=== PATIENT | male | born 1950 | race African-American/Black ===

== ENCOUNTER → 2018-11-26 | Emergency (ER) | payer MEDICARE ==
[~2018-11-26] VITALS: Ht 177.8 cm; Wt 79.4 kg
[~2018-11-26] MED LIST: ALBUTEROL SULF8.5 GM INH; Albuterol/Ipratropium 3ml neb HHN ONE; CIPRO500 MG PO; FLOMAX0.4 MG PO; IBUPROFEN600 MG PO; LEVAQUIN500 MG ORAL; MEDROL DOSEPAK4 MG ORAL; NORVASC5 MG PO; OXYCODON-ACETA1 EAC2 PO; PERCOCET 5-3251 EACH PO; PROMETHAZINE-C118 M1 ORAL; Promethazine/Codeine 5ml UD ORAL ONE; VICODIN 5-5001 EACH PO; ZITHROMAX250 MG ORAL
--- NOTE | 2018-11-26 14:33 | NUR ---
ED Nurse Note: pt walked in ed c/o flu like s/s for four five days pt states he has been taking otc cold medicine and took his old amoxicillin but doesn't help. Pt AA&ox4, gcs=15, skin warm and dry, resp even and unlabored, noted productive cough, and congestion, LS=rhonchi, -n/v/d, ambulates w/ cane steady gait. PA at the bedside.
[2018-11-26 14:35] VITALS: BP 137/80
--- NOTE | 2018-11-26 14:45 | Emergency Room Report ---
History of Present Illness General Chief Complaint: Flu Like Symptoms Source: Medical Record Present Illness HPI 68-year-old male presents to the emergency department complaining of persistent cough with wheezing 4-5 days. Patient denies fevers and chills he states he's been using [id number] cough and cold remedies with no relief. Patient reports history of asthma/bronchitis. Patient denies smoking history. Patient denies chest pain or swelling in the lower extremities. Patient denies history of heart failure. Denies sore throat, ear pain, high fevers, lethargy, neck pain /stiffness, irritability, photophobia dehydration, N/V/D. Denies Cp, Palpitations, LOC, AMS, seizures, paresthesias, or changes in Hearing or vision , no Sudden severe HANNA. Denies dyspnea or SOB, he states taking a deep breath will instigate coughing. Allergies: Coded Allergies: No Known Allergies (Unverified , 11/26/18) Patient History Past Medical History: see triage record Past Surgical History: none Pertinent Family History: none Immunizations: UTD Reviewed Nursing Documentation: PMH: Agreed; PSxH: Agreed Nursing Documentation-PMH Hx Cardiac Problems: Yes - ENLARGED HEART Hx Hypertension: Yes Hx COPD: Yes Hx Diabetes: No Hx Cancer: No Hx Gastrointestinal Problems: No - BPH Hx Neurological Problems: No Review of Systems All Other Systems: negative except mentioned in HPI Physical Exam Vital Signs Date Time Temp Pulse Resp B/P (MAP) Pulse Ox O2 Delivery O2 Flow Rate FiO2 11/26/18 14:30 97.9 73 18 137/80 96 Room Air Sp02 EP Interpretation: reviewed, normal General Appearance: no apparent distress, alert, GCS 15, non-toxic Head: normocephalic, atraumatic Eyes: bilateral eye normal inspection, bilateral eye PERRL ENT: hearing grossly normal, normal voice Neck: full range of motion Respiratory: chest non-tender, lungs clear, speaking full sentences, wheezing Cardiovascular #1: regular rate, rhythm, no edema, normal capillary refill Musculoskeletal: back normal, gait/station normal, normal range of motion, non- tender Neurologic: alert, oriented x3, responsive, motor strength/tone normal, sensory intact, speech normal, grossly normal Psychiatric: judgement/insight normal Skin: normal color, no rash, warm/dry, well hydrated Lymphatic: no adenopathy Medical Decision Making PA Attestation Dr. Bhardwaj is my supervising physician whom pt. management has been discussed with. Diagnostic Impression: Primary Impression: Atypical pneumonia ER Course 68-year-old male presents to the emergency department complaining of persistent cough with wheezing 4-5 days. Patient denies fevers and chills he states he's been using [id number] cough and cold remedies with no relief. Patient reports history of asthma/bronchitis. Patient denies smoking history. Patient denies chest pain or swelling in the lower extremities. Patient denies history of heart failure. Denies sore throat, ear pain, high fevers, lethargy, neck pain /stiffness, irritability, photophobia dehydration, N/V/D. Denies Cp, Palpitations, LOC, AMS, seizures, paresthesias, or changes in Hearing or vision , no Sudden severe HANNA. Denies dyspnea or SOB, he states taking a deep breath will instigate coughing. Ddx considered but are not limited to URI, pneumonia, PE, strep pharyngitis, meningitis. Vital signs: Pt.is afebrile VS are WNL H&PE are most consistent with bronchitis with possible atypical PNA ORDERS: none required at this time, the diagnosis is clinical ED INTERVENTIONS: -Duo Nebs -Cough Syrup DISCHARGE: At this time pt. is stable for d/c to home. Will provide printed patient care instructions, and any necessary prescriptions. Care plan and follow up instructions have been discussed with the patient prior to discharge. Last Vital Signs Date Time Temp Pulse Resp B/P (MAP) Pulse Ox O2 Delivery O2 Flow Rate FiO2 11/26/18 14:30 97.9 73 18 137/80 96 Room Air Disposition: HOME, SELF-CARE Condition: Stable Scripts Albuterol Sulfate* (ALBUTEROL SULFATE MDI*) 8.5 Gm Hfa.aer.ad 2 PUFF INH Q3H, #1 INH 0 Refills Prov: Louise Jansen 11/26/18 Azithromycin* (ZITHROMAX*) 250 Mg Tablet 250 MG ORAL DAILY, #6 TAB Prov: Louise Jansen 11/26/18 Codeine/Promethazine Hcl* (PROMETHAZINE-CODEINE SYRUP*) 118 Ml Syrup 5 ML ORAL Q4H PRN for For Cough, #120 ML 0 Refills Prov: Louise Jansen 11/26/18 Patient Instructions: Acute Bronchitis, [id number] Additional Instructions: Take medications as directed. Follow up with a Primary Care Provider in 3-5 days, even if your symptoms have resolved. --Please review list of primary care clinics, if you do not already have a primary care provider Return sooner to ED if new symptoms occur, or current symptoms become worse. Do not drink alcohol, drive, or operate heavy machinery while taking Cough Syrup as this may cause drowsiness. - Please note that this Emergency Department Report was dictated using [employer] technology software, occasionally this can lead to erroneous entry secondary to interpretation by the dictation equipment. Louise Jansen Nov 26, 2018 14:45
--- NOTE | 2018-11-26 15:10 | NUR ---
ED Nurse Note: pt states breathing tx helped. LS=clear, less cough noted will cont monitor.
[2018-11-26 15:15] VITALS: BP 138/89
--- NOTE | 2018-11-26 15:15 | NUR ---
ED Nurse Note: pt discharge instruction provided w/ prescription, pt education done via discussion and handout, pt advised to follow up w/ pcp 2-3days, pt verbalized understanding and agrees with plan, pt wrist band removed, pt ambulatory w/ steady gait, vss, all belongings left w/ pt.
== END | disposition home or self-care (01) ==
LOC: EMR 16:00
DX: J18.9 Pneumonia, unspecified organism (principal)
CPT/HCPCS: 94640; 94664; 99284; J7620